=== PATIENT | male | born 1980 | race Caucasian/White ===

== ENCOUNTER → 2020-01-04 13:48 | Outpatient (BNVA) | payer BC, SELFPAY | PROVIDERS: Visit Provider Internal Medicine | DX: F11.99 Opioid use, unspecified with unspecified opioid-induced disorder (principal) | CPT/HCPCS: 80305 ==

== ENCOUNTER → 2020-02-01 12:49 | Outpatient (BNVA) | payer BC, SELFPAY | PROVIDERS: Visit Provider Internal Medicine | DX: F11.99 Opioid use, unspecified with unspecified opioid-induced disorder (principal) | CPT/HCPCS: 80305 ==

== ENCOUNTER → 2020-03-02 16:04 | Outpatient (BNVA) | payer BC, SELFPAY | PROVIDERS: Visit Provider Internal Medicine | DX: Z76.89 Persons encountering health services in other specified circumstances (principal) ==

== ENCOUNTER → 2020-03-29 13:43 | Outpatient (BNVA) | payer BC, SELFPAY | PROVIDERS: Visit Provider Internal Medicine | DX: Z76.89 Persons encountering health services in other specified circumstances (principal) ==

== ENCOUNTER → 2020-04-25 13:15 | Outpatient (BNVA) | payer BC, SELFPAY | PROVIDERS: Visit Provider Internal Medicine | DX: Z76.89 Persons encountering health services in other specified circumstances (principal) ==

== ENCOUNTER → 2020-05-23 13:30 | Outpatient (BNVA) | payer BC, SELFPAY | PROVIDERS: Visit Provider Internal Medicine ==

== ENCOUNTER → 2020-06-20 13:45 | Outpatient (BNVA) | payer BC, SELFPAY | PROVIDERS: Visit Provider Internal Medicine | DX: Z51.81 Encounter for therapeutic drug level monitoring (principal) | CPT/HCPCS: 80305 ==

== ENCOUNTER → 2020-07-18 13:47 | Outpatient (BNVA) | payer BC, SELFPAY | PROVIDERS: Visit Provider Internal Medicine | DX: Z51.81 Encounter for therapeutic drug level monitoring (principal) | CPT/HCPCS: 80305 ==

== ENCOUNTER → 2020-08-15 13:52 | Outpatient (BNVA) | payer BC, SELFPAY | PROVIDERS: Visit Provider Internal Medicine | DX: Z51.81 Encounter for therapeutic drug level monitoring (principal) | CPT/HCPCS: 80305 ==

== ENCOUNTER → 2020-09-12 14:27 | Outpatient (BNVA) | payer BC, SELFPAY | PROVIDERS: Visit Provider Internal Medicine | DX: F11.99 Opioid use, unspecified with unspecified opioid-induced disorder (principal) | CPT/HCPCS: 80305 ==

== ENCOUNTER → 2020-11-07 12:55 | Outpatient (BNVA) | payer BC, SELFPAY | PROVIDERS: Visit Provider Internal Medicine | DX: Z51.81 Encounter for therapeutic drug level monitoring (principal); F11.90 Opioid use, unspecified, uncomplicated | CPT/HCPCS: 80305 ==

== ENCOUNTER → 2021-01-02 16:41 | Outpatient (BNVA) | payer BC, SELFPAY | PROVIDERS: Visit Provider Internal Medicine | DX: Z51.81 Encounter for therapeutic drug level monitoring (principal) ==

== ENCOUNTER → 2021-03-04 13:39 | Outpatient (BNVA) | payer BC, SELFPAY | PROVIDERS: Visit Provider Internal Medicine | DX: Z51.81 Encounter for therapeutic drug level monitoring (principal); F11.20 Opioid dependence, uncomplicated | CPT/HCPCS: 80305 ==

== ENCOUNTER → 2021-05-08 14:04 | Outpatient (BNVA) | payer BC, SELFPAY | PROVIDERS: Visit Provider Internal Medicine | DX: F11.20 Opioid dependence, uncomplicated (principal); Z51.81 Encounter for therapeutic drug level monitoring; Z79.899 Other long term (current) drug therapy | CPT/HCPCS: 80305 ==

== ENCOUNTER → 2021-07-03 14:29 | Outpatient (BNVA) | payer BC, SELFPAY | PROVIDERS: Visit Provider Internal Medicine | DX: F11.20 Opioid dependence, uncomplicated (principal); Z51.81 Encounter for therapeutic drug level monitoring; Z79.899 Other long term (current) drug therapy | CPT/HCPCS: 80305 ==

== ENCOUNTER → 2021-08-28 13:57 | Outpatient (BNVA) | payer BC, SELFPAY | PROVIDERS: Visit Provider Internal Medicine | DX: Z13.89 Encounter for screening for other disorder (principal) ==

== ENCOUNTER → 2021-08-30 14:36 | Outpatient (BNVA) | payer BC, SELFPAY | PROVIDERS: Visit Provider Internal Medicine | DX: Z51.81 Encounter for therapeutic drug level monitoring (principal); F11.20 Opioid dependence, uncomplicated | CPT/HCPCS: 80305 ==

== ENCOUNTER → 2021-10-18 10:23 | Outpatient (BNVA) | payer BC, SELFPAY | PROVIDERS: Visit Provider Internal Medicine | DX: F11.20 Opioid dependence, uncomplicated (principal); Z51.81 Encounter for therapeutic drug level monitoring; Z79.899 Other long term (current) drug therapy | CPT/HCPCS: 80305 ==

== ENCOUNTER → 2021-12-13 10:30 | Outpatient (BNVA) | payer BC, SELFPAY | PROVIDERS: Visit Provider Internal Medicine | DX: Z51.81 Encounter for therapeutic drug level monitoring (principal); F11.20 Opioid dependence, uncomplicated | CPT/HCPCS: 80305 ==

== ENCOUNTER → 2022-04-08 09:24 | Outpatient (BNVA) | payer BC, SELFPAY | PROVIDERS: Visit Provider Nurse Practitioner Psychiatric/Mental Health | DX: F11.21 Opioid dependence, in remission (principal); Z51.81 Encounter for therapeutic drug level monitoring; Z79.899 Other long term (current) drug therapy | CPT/HCPCS: 80305 ==

== ENCOUNTER → 2022-06-03 09:53 | Outpatient (BNVA) | payer BC, SELFPAY | PROVIDERS: Visit Provider Nurse Practitioner Psychiatric/Mental Health | DX: Z51.81 Encounter for therapeutic drug level monitoring (principal); Z79.899 Other long term (current) drug therapy ==

== ENCOUNTER → 2022-07-29 09:55 | Outpatient (BNVA) | payer BC, SELFPAY | PROVIDERS: Visit Provider Nurse Practitioner Psychiatric/Mental Health | DX: Z51.81 Encounter for therapeutic drug level monitoring (principal); Z79.899 Other long term (current) drug therapy ==

== ENCOUNTER 2022-10-29 14:19 | Outpatient (AMB) | payer BC, SELFPAY ==
--- NOTE | 2022-10-29 14:20 | A.OFFVIS_ITS ---
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 Denies any side effects related to medication Doing well with recovery, considering tapering. Nervous about withdrawal symptoms. Discussed using long acting injectable as a possible alternative to tapering sublingual films. Patient will consider over the next few months. Reminded patient that lab work needs to be completed. [facility] Medical History Opioid use disorder Review of Systems Const Reports as per HPI and Reports no additional complaints Physical Exam Vital Signs: Last Vital Signs Pulse 66 10/29/22 14:23 BP 110/70 10/29/22 14:23 Pulse Ox 97 10/29/22 14:23 Oxygen Delivery Method Room Air 10/29/22 14:23 Const General: cooperative and healthy appearing Psych Appearance: well kempt Thought process: Normal thought process present Thought content: Normal thought content present Insight: Good insight present (Psych) Judgement: Good judgement present (Psych) Assessment & Plan Assessment & Plan (1) Opioid use disorder, moderate, in sustained remission: Code(s): F11.21 - Opioid dependence, in remission Plan: * continue suboxone at current dose * reminded to complete labs * follow up 3 months Medications: Refilled buprenorphine-naloxone 8-2 mg (Suboxone) 1 film sublingual BID 60 ea 2RF 30 days Coding Level of Care Code Est Pt Level 3 (60702) Diagnoses Opioid use disorder, moderate, in sustained remission F11.21
[2022-10-29 14:23] VITALS: BP 110/70; PULSE 66; O2SAT 97
== END 2022-10-29 14:55 | disposition home or self-care (01) ==
LOC: HO.HCC 14:19
PROVIDERS: Visit Provider Nurse Practitioner Psychiatric/Mental Health
DX: F11.21 Opioid dependence, in remission (principal)
CPT/HCPCS: 99213

== ENCOUNTER → 2022-10-29 14:19 | Outpatient (BNVA) | payer BC, SELFPAY | PROVIDERS: Visit Provider Nurse Practitioner Psychiatric/Mental Health | DX: Z51.81 Encounter for therapeutic drug level monitoring (principal); Z79.899 Other long term (current) drug therapy ==

== ENCOUNTER 2023-01-16 15:24 | Outpatient (REF) | payer BC, SELFPAY ==
[2023-01-16 16:26] LABS: Alanine Aminotransferase 17 U/L (0-40); Albumin Level 4.4 g/dL (3.5-5.0); Alkaline Phosphatase 51 U/L (39-117); Anion Gap 12 (12-20); Aspartate Amino Transferase 22 U/L (5-37); Bilirubin Total 0.6 mg/dL (0.0-1.0); Blood Urea Nitrogen 12 mg/dL (9-16); Calcium 9.8 mg/dL (8.4-10.2); Carbon Dioxide 30 mmol/L (22-29); Chloride 103 mmol/L (96-108); Estimated Glomerular Filt Rate > 60; Glucose Random 96 mg/dL (60-115); Potassium 4.1 mmol/L (3.3-5.1); Sodium 141 mmol/L (135-145); Total Protein 7.3 g/dL (6.5-8.0)
== END 2023-01-16 15:25 | disposition home or self-care (01) ==
LOC: HO.LAB 15:24
PROVIDERS: Visit Provider Nurse Practitioner Psychiatric/Mental Health
DX: Z79.899 Other long term (current) drug therapy (principal)
CPT/HCPCS: 36415; 80053

== ENCOUNTER 2023-01-20 13:51 | Outpatient (AMB) | payer BC, SELFPAY ==
--- NOTE | 2023-01-20 13:53 | MHC.OFFVIS ---
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: No Allergies cats Allergy (Mild, Uncoded 01/20/23 13:57) itchy eyes, sneezing cut grass Allergy (Mild, Uncoded 01/20/23 13:57) itchy eyes, sneezing Do you need a note to return to daycare/school/sports/work: No HPI MAT Visit HPI Details Patient presents for follow up Currently prescribed suboxone 8mg BID Doing well overall, recently completed labwork No questions or concerns at this time [facility] Medical History (Updated 01/21/23 @ 16:45 by Fiona Maxwell CNP) Opioid use disorder Review of Systems Const Reports as per HPI and Reports no additional complaints Physical Exam Vital Signs: Last Vital Signs Pulse 54 01/20/23 13:56 BP 108/72 01/20/23 13:56 Pulse Ox 97 01/20/23 13:56 Oxygen Delivery Method Room Air 01/20/23 13:56 Const General: cooperative and healthy appearing Psych Appearance: well kempt Thought process: Normal thought process present Thought content: Normal thought content present Insight: Good insight present (Psych) Judgement: Good judgement present (Psych) Assessment & Plan Assessment & Plan (1) Opioid use disorder, moderate, in sustained remission: Code(s): F11.21 - Opioid dependence, in remission Plan: continue suboxone at current dose follow up 3 months Coding Level of Care Code Est Pt Level 3 (07248) Diagnoses Opioid use disorder, moderate, in sustained remission F11.21
[2023-01-20 13:56] VITALS: BP 108/72; PULSE 54; O2SAT 97
== END 2023-01-20 14:18 | disposition home or self-care (01) ==
PROVIDERS: Visit Provider Nurse Practitioner Psychiatric/Mental Health
DX: F11.21 Opioid dependence, in remission (principal)
CPT/HCPCS: 99213

== ENCOUNTER → 2023-01-20 13:51 | Outpatient (BNVA) | payer BC, SELFPAY | PROVIDERS: Visit Provider Nurse Practitioner Psychiatric/Mental Health | DX: Z51.81 Encounter for therapeutic drug level monitoring (principal); Z79.899 Other long term (current) drug therapy ==

== ENCOUNTER 2023-05-20 13:23 | Outpatient (AMB) | payer BC, SELFPAY ==
--- NOTE | 2023-05-20 13:43 | A.OFFVISCC_ITS ---
Intake Intake Visit Reasons: MAT Visit Intake Note: The patient presents for a mat visit Take Off Man Required: No Allergies cats Allergy (Mild, Uncoded 05/20/23 13:43) itchy eyes, sneezing cut grass Allergy (Mild, Uncoded 05/20/23 13:43) itchy eyes, sneezing Do you need a note to return to daycare/school/sports/work: No HPI MAT Visit HPI Details Patient presents for follow up Currently prescribed Suboxone 8mg BID Considering injection to taper off of Buprenorphine all together, Questions answered--patient would like to move forwards with this. 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 [facility] Medical History (Updated 01/21/23 @ 16:45 by Fiona Maxwell CNP) Opioid use disorder Review of Systems Const Reports as per HPI and Reports no additional complaints Physical Exam Const General: cooperative and healthy appearing Psych Appearance: well kempt Thought process: Normal thought process present Thought content: Normal thought content present Insight: Good insight present (Psych) Judgement: Good judgement present (Psych) Results AMB 14 Panel Urine Drug Screen Urine Marijuana (THC) Negative Last Edit by Daniella Kelly CMA on 05/20/23 13:54 Urine Cocaine Negative Last Edit by Daniella Kelly CMA on 05/20/23 13:54 Urine Morphine Negative Last Edit by Daniella Kelly CMA on 05/20/23 13:54 Urine Methamphetamine Negative Last Edit by Daniella Kelly CMA on 05/20/23 13:54 Urine Amphetamine Negative Last Edit by Daniella Kelly CMA on 05/20/23 13:5 4 Urine Benzodiazepine Negative Last Edit by Daniella Kelly CMA on 05/20/23 13:54 Urine Barbiturates Negative Last Edit by Daniella Kelly CMA on 05/20/23 13: 54 Urine Methadone Negative Last Edit by Daniella Kelyl CMA on 05/20/23 13:54 Urine Buprenorphine Positive Last Edit by Daniella Kelly CMA on 05/20/23 13 :54 Urine Tricyclic Antidepressant Negative Last Edit by Daniella Kelly CMA on 05/20/23 13:54 Urine MDMA Negative Last Edit by Daniella Kelly CMA on 05/20/23 13:54 Urine Oxycodone Negative Last Edit by Daniella Kelly CMA on 05/20/23 13:54 Urine Phencyclidine Negative Last Edit by Daniella Kelly CMA on 05/20/23 13 :54 Urine Propoxyphene Negative Last Edit by Daniella Kelly CMA on 05/20/23 13: 54 Results Reviewed Results Reviewed: Laboratory Last Values POC Urine Buprenorphine Positive 05/20/23 13:42 POC Urine Morphine Negative 05/20/23 13:42 POC Urine Oxycodone Negative 05/20/23 13:42 POC Urine Methadone Negative 05/20/23 13:42 POC Urine Propoxyphene Negative 05/20/23 13:42 POC Urine Barbiturates Negative 05/20/23 13:42 POC U Tricyclic Antidpr Negative 05/20/23 13:42 POC Urine PCP Negative 05/20/23 13:42 POC Ur Amphetamines Negative 05/20/23 13:42 POC Ur Methamphetamine Negative 05/20/23 13:42 POC Urine MDMA Negative 05/20/23 13:42 POC Ur Benzodiazepine Negative 05/20/23 13:42 POC Urine Cocaine Negative 05/20/23 13:42 POC Ur Marijuana (THC) Negative 05/20/23 13:42 Assessment & Plan Assessment & Plan (1) Opioid use disorder, moderate, in sustained remission: Code(s): F11.21 - Opioid dependence, in remission Plan: * continue suboxone at current dose follow up 3 months * sublocade to be ordered Orders: Orders AMB 14 Panel Urine Drug Screen Today Z51.81 - Encounter for therapeutic drug level monitoring Medications: New buprenorphine ER (Sublocade) 300 mg (1.5 mL) subcut .once every 4 weeks 1.5 mL 1RF Coding Level of Care Code Est Pt Level 3 (79238) Diagnoses Opioid use disorder, moderate, in sustained remission F11.21
== END 2023-05-20 14:39 | disposition home or self-care (01) ==
PROVIDERS: Visit Provider Nurse Practitioner Psychiatric/Mental Health
DX: F11.21 Opioid dependence, in remission (principal); Z51.81 Encounter for therapeutic drug level monitoring
CPT/HCPCS: 99213

== ENCOUNTER → 2023-05-20 13:23 | Outpatient (BNVA) | payer BC, SELFPAY | PROVIDERS: Visit Provider Nurse Practitioner Psychiatric/Mental Health | DX: F11.20 Opioid dependence, uncomplicated (principal) | CPT/HCPCS: 80305 ==

== ENCOUNTER 2023-08-12 13:26 | Outpatient (AMB) | payer BC, SELFPAY ==
[2023-08-12 13:29] VITALS: BP 150/78; PULSE 51; O2SAT 98
--- NOTE | 2023-08-12 13:29 | A.OFFVISCC_ITS ---
Vital Signs 08/12/23 13:29 BP 150/78 H Blood Pressure Location Lt brachial Position Sitting Pulse 51 Pulse Source Pulse Oximeter Pulse Oximetry (%) 98 Oxygen Delivery Method Room Air Intake Visit Reasons: MAT Visit Allergies cats Allergy (Mild, Uncoded 05/20/23 13:43) itchy eyes, sneezing cut grass Allergy (Mild, Uncoded 05/20/23 13:43) itchy eyes, sneezing HPI HPI MAT Visit: Details: Patient presents for follow and first sublocade injection No questions at this time as we have discussed in previous visits and he has researched on his own Overall doing well--ran the [employer] and enjoyed it still working [facility] Medical History (Updated 08/12/23 @ 16:11 by Fiona Maxwell CNP) Opioid use disorder Review of Systems Const Reports as per HPI and Reports no additional complaints Physical Exam Vital Signs: Last Vital Signs Pulse 51 08/12/23 13:29 BP 150/78 H 08/12/23 13:29 Pulse Ox 98 08/12/23 13:29 Oxygen Delivery Method Room Air 08/12/23 13:29 Const General: cooperative and healthy appearing Nutritional Appearance: thin Orientation/consciousness: patient oriented x3 Limitations: no limitations Neuro General: patient oriented x3 Psych Appearance: well kempt Speech and movement: Clear speech present Affect: normal affect Attitude: cooperative Thought process: Normal thought process present Thought content: Normal thought content present Insight: Good insight present (Psych) Judgement: Good judgement present (Psych) Office Meds Sublocade 300 mg/1.5 mL solution,extended release subcutaneous syringe Performing Provider: Fiona Maxwell CNP Performing Location: [facility] Administered by: Berna Morales RN on 08/13/23 10:36 Dose Route Admin Location Dispensed Lot Number Expiration Date [facility] [place] Follow Up Specialist 300 mg subcut RLQ 1.5 mL [id number] 06/28/24 [id number] [employer]. Assessment & Plan Assessment & Plan (1) Opioid use disorder, moderate, in sustained remission: Code(s): F11.21 - Opioid dependence, in remission Category: Medical Plan: * tolerated injection * encouraged to call office with any questions or concerns following injection * has some left over films, but asked to call office should he need any more prior to next injection Orders: Orders AMB Buprenorphine Injection - Patient Supplied 08/12/23 F11.21 - Opioid dependence, in remission
== END 2023-08-12 14:21 | disposition home or self-care (01) ==
PROVIDERS: PCP Family Medicine; Visit Provider Nurse Practitioner Psychiatric/Mental Health
DX: F11.21 Opioid dependence, in remission (principal)
CPT/HCPCS: 99213

== ENCOUNTER → 2023-08-12 13:26 | Outpatient (BNVA) | payer BC, SELFPAY | PROVIDERS: PCP Family Medicine; Visit Provider Nurse Practitioner Psychiatric/Mental Health | DX: F11.20 Opioid dependence, uncomplicated (principal) | CPT/HCPCS: 96372; Q9992 ==

== ENCOUNTER 2023-11-23 14:43 | Outpatient (AMB) | payer BC, SELFPAY ==
--- NOTE | 2023-11-23 14:59 | A.OFFPC_ITS ---
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 ?? Prior PCP:Jennifer Last office visit/CPE:? about 4 yrs Acute issue(s):? ? Sleep Apnea Also works alternating shifts ?? PMHx:? Opioid use disorder now on Buprenorphine injection; remains in remission. SurgHx:? Nasal septum FHx:?Dad: Lung CA, Substance abuse. Mom: Unknown SocHx: Quit cigs 5+ yrs. EtOH: 2x a month; 3-4 drinks per episode. No other drugs HPI Comments History of Present Illness Details Documentation assistance for Lion Barr MD, was provided by Kirk Castillo,? Circuit Court Clerk on 11/23/2023 at 3:20 PM EST. I, Dr. Barr, have read, observed, and verified documentation. 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 1. Little interest or pleasure in doing things: not at all 2. Feeling down, depressed, or hopeless: not at all 3. Trouble falling or staying asleep, or sleeping too much: not at all 4. Feeling tired or having little energy: several days 5. Poor appetite or overeating: not at all 6. Feeling bad about yourself - or that you are a failure or have let yourself or your family down: not at all 7. Trouble concentrating on things, such as reading the newspaper or watching television: not at all 8. Moving or speaking so slowly that other people could have noticed. Or the opposite - being so fidgety or restless that you have been moving around a lot more than usual: not at all 9. Thoughts that you would be better off or of hurting yourself in some way: not at all Total score: 1 Depression Screening Interpretation: Negative Depression Screening Done: Yes 14507 - PHQ-9 Billing: Yes Source: Developed by Drs. Kali Johnson, Jessi Doyle, Pool Young and colleagues, with an educational tee from [employer]. Thrive Questionnaire Date Thrive assessed: 11/23/23 I am a: Patient What is your living situation today?: I have a steady place to live Within the past 12 months, did the food you bought not last and you didn't have the money to get more?: Never true Within the past 12 months, did you worry whether your food would run out before you got money to buy more?: Never true Do you have trouble paying for medicines?: No Do you have trouble getting transportation to medical appointments?: No Do you have trouble paying your heating and electricity bill?: No Do you have trouble taking care of your child, family member or friend?: No Do you have trouble with day-to-day activities such as bathing, preparing meals, shopping, managing finances, etc.?: No Are you currently unemployed and looking for a job?: Yes Are you interested in more education?: Yes Please select the resources that you would like help with: None Currently or been in a relationship where the following occur: No concerns reported THRIVE Score: 0 AUDIT C Alcohol Use Questionnaire (AUDIT-C) 1. How often do you have a drink containing alcohol?: 2-4 times a month 2. How many drinks containing alcohol do you have on a typical day when you are drinking?: 3 or 4 3. How often do you have six or more drinks on one occasion?: Monthly Total Score: 5 Score Reviewed/Action Taken: Yes KULDIP-7 AMB Questionnaire KULDIP-7 Date KULDIP - 7 assessed: 11/23/23 Feeling nervous, anxious, or on edge: 0 = Not at all Not being able to stop or control worryin = Not at all Worrying too much about different things: 0 = Not at all Trouble relaxin = Not at all Being so restless that it is hard to sit still: 0 = Not at all Becoming easily annoyed or irritable: 0 = Not at all Feeling afraid as if something awful might happen: 0 = Not at all Total KULDIP-7 score (0-4 normal; 5-9 mild; 10-14 moderate; 15-21 severe): 0 Source: Developed by Drs. Kali Johnson, Jessi Doyle, Pool Young and colleagues, with an educational tee from [employer]. KULDIP-7 Assessment Billing KULDIP-7 Assessment Tool: KULDIP-7 Assessment 48100 Review of Systems Const Denies chills, Denies fatigue, Denies fever(s), Denies headache(s) and Denies weakness ENT Denies dizziness and Denies headache(s) Card Denies chest pain, Denies lightheadedness, Denies dyspnea and Denies other (Palpitations) Resp Denies cough, Denies dyspnea, Denies wheezing and Denies other ( shortness of breath) Musc Denies numbness and Denies tingling Neuro Denies dizziness, Denies headache(s), Denies numbness, Denies tingling, Denies paresthesias and Denies weakness Psych Denies anxiety and Denies depression Endo Denies fatigue Aller/Immun Denies wheezing Physical exam (Primary Care) Vital Signs: Last Vital Signs Temp 96.6 F L 11/23/23 15:06 Pulse 59 11/23/23 15:06 Resp 16 11/23/23 15:06 BP 90/60 11/23/23 15:06 Pulse Ox 97 11/23/23 15:06 Oxygen Delivery Method Room Air 11/23/23 15:06 BMI result Body Mass Index 21.1 Tobacco/Smoking Status: Tobacco use Status Tobacco use date assessed 11/23/23 11/23/23 15:05 Patient Tobacco Use Status Former Tobacco user 11/23/23 15:05 e-Cigarette/Vaping Use Never Used 11/23/23 15:05 PHQ-9: PHQ-9 Score PHQ-9: Total score 1 11/23/23 15:06 Depression Screening Interpretation: Negative Thrive Assessment: Date of Thrive Assessment Date Thrive assessed 11/23/23 11/23/23 15:05 Currently or been in a relationship where the following occur: No concerns repo rted Const General: no acute distress and well developed Nutritional Appearance: well nourished Orientation/consciousness: patient oriented x3 HENMT Head: Yes normocephalic and Yes atraumatic Eyes General: appearance normal, both eyes and all related structures Pupils: Equal, round and reactive pupils present EOM: EOMs intact bilaterally Resp Effort & Inspection: normal respiratory effort Auscultation: clear to auscultation bilaterally Cardio Rate: regular rate Rhythm: regular rhythm Heart sounds: S1 normal heart sound present, S2 normal heart sound present, no gallops, no murmurs and no rubs Neuro General: patient oriented x3 and gait normal Cranial nerves: Yes Equal, round and reactive pupils present Psych Affect: normal affect Assessment and Plan Assessment & Plan (1) Sleep apnea: Code(s): G47.30 - Sleep apnea, unspecified Plan: Witnessed?apneic?events?at?home?by?his? Also?has?complaints?fatigue?and?snoring Referred?to?Sleep?Medicine (2) Fatigue: Code(s): R53.83 - Other fatigue Plan: Patient?notes?significant?fatigue?which?may?be?related?to?sleep?apnea Will?also?check?CBC,?thyroid?and?testosterone?levels (3) Opioid use disorder, moderate, in sustained remission: Code(s): F11.21 - Opioid dependence, in remission Plan: Patient?is?in?long-term?remission?on?buprenorphine?injection Continue?current?treatment?and?follow- up?with?the?[facility]?as?recommended. (4) Loud snoring: Code(s): R06.83 - Snoring Plan: As?above,?referred?to?Sleep?Medicine (5) Laboratory exam ordered as part of routine general medical examination: Code(s): Z00.00 - Encounter for general adult medical examination without abnormal findings Plan: Check?labs Orders: Orders Comprehensive Summers. Panel Fast Today Z00.00 - Encounter for general adult medical examination without abnormal findings Testosterone, Free/Total Today R53.83 - Other fatigue Complete Blood Count Auto Diff Today Z00.00 - Encounter for general adult medical examination without abnormal findings Lipid Panel Today Z00.00 - Encounter for general adult medical examination without abnormal findings Microalbumin, Random (w Creat) Today I10 - Essential (primary) hypertension Prostate Specific Antigen Scr Today Z12.5 - Encounter for screening for ma lignant neoplasm of prostate TSH reflex Free T4 Today Z00.00 - Encounter for general adult medical examination without abnormal findings UA and rflx microscopic Today Z00.00 - Encounter for general adult medical examination without abnormal findings Referrals Sleep Medicine Referral G47.30 - Sleep apnea, unspecified Coding Level of Care Code New Pt Level 3 (54509) Diagnoses Sleep apnea G47.30 Fatigue R53.83 Opioid use disorder, moderate, in sustained remission F11.21 Loud snoring R06.83 Laboratory exam ordered as part of routine general medical examination Z00.00 Additional Codes KULDIP-7 Assessment Billing - KULDIP-7 Assessment Tool: KULDIP-7 Assessment 53819 ([id number])
[2023-11-23 15:06] VITALS: BP 90/60; PULSE 59; RESP 16; TEMP 35.9; O2SAT 97; BMI 21.1
[2023-11-23 15:17] VITALS: BP 97/56; PULSE 59
== END 2023-11-23 15:31 | disposition home or self-care (01) ==
PROVIDERS: PCP Family Medicine; Visit Provider Family Medicine
DX: G47.30 Sleep apnea, unspecified (principal); R53.83 Other fatigue; F11.21 Opioid dependence, in remission; R06.83 Snoring
CPT/HCPCS: 99203